=== PATIENT | male | born 1995 | race Caucasian/White ===

== ENCOUNTER 2020-01-18 08:58 | Day surgery (SDC) | payer BC ==
[2020-01-15 14:10] VITALS: BMI 26.9
[2020-01-18] MEDS ORDERED: MIDAZOLAM HCL 2 MG/2 ML SINGLE DOSE VIAL ONE (11:35)
[2020-01-18] MEDS ORDERED: ROPIVACAINE HCL 0.5% 30ML VIAL ONE (11:35)
[2020-01-18] MEDS ORDERED: PROPOFOL 20 ML ONE ×3 (12:42→12:45)
[2020-01-18] MEDS ORDERED: ceFAZolin SODIUM 1 GM VIAL ONE (12:45)
[2020-01-18] MEDS ORDERED: GLYCOPYRROLATE 0.2 MG/1 ML VIAL ONE (12:55)
[2020-01-18] MEDS ORDERED: oxyCODONE HCL 5 MG TABLET PO PRN ×2 (13:02)
[2020-01-18] MEDS ORDERED: ONDANSETRON 4 MG/2 ML VIAL IVPUSH PRN (13:02)
[2020-01-18] MEDS ORDERED: LACTATED RINGERS SOLUTION 1,000 ML IV SCH (13:15)
[2020-01-18 15:44] VITALS: TEMP 97.6
[2020-01-18 15:45] VITALS: BP 122/82; PULSE 56
--- NOTE | 2020-01-20 15:47 | OP ---
DATE OF OPERATION: 01/18/2020 SURGEON: Brant Quezada MD TRANSPORT MANAGER: APARNA Zavaleta PREOPERATIVE DIAGNOSIS: Left shoulder instability/labral tear. POSTOPERATIVE DIAGNOSIS: Left shoulder instability/labral tear. PROCEDURE: Left shoulder arthroscopy with capsulorrhaphy (CPT code 78612). FINDINGS: 1. Anterior labral tear 11:30 position to 6 o'clock position. 2. Grade 2 cartilage injury anterior rim of glenoid. 3. Thickened subacromial space. 4. Minor lateral spurring. 5. Posterior labral fraying. PROCEDURE: Informed consent was obtained. Patient was taken to the operating room where the left upper extremity was prepped and draped in a sterile fashion. Exam under anesthesia showed anterior inferior instability. Posterior incision was made which allowed for entry of the camera into the glenohumeral joint. Under direct visualization the anterior incision was made. Probing of the anterior labrum showed a Bankart tear with tearing of the anterior labrum as described, anterior cartilage injury and access of capsule tissue anteriorly. A secondary anterior portal was made. Small the anterior rim to create a bleeding surface on the entire anterior labral surface to the 6 o'clock position. Anchors were placed at the 6 o'clock, 5 o'clock, the 3 o'clock and 2 o'clock positions. Anterior capsular tissue and the anterior labrum were captured with alternating mattress and simple sutures, reducing the anterior capsule secured to a bleeding bone bed. Posterior labral fraying was debrided with a minor low setting Bovie. Rotator cuff was intact. The camera reached the subacromial space. Minor thickened scar tissue was debrided. Shoulder was drained. Single stitch was placed at all portals. Sterile dressing was placed. The patient was transferred to the recovery room without complication. BRANT QUEZADA M.D. [id number]
--- NOTE | 2020-01-23 19:01 | PATH ---
Surgical Pathology Report Patient Name: DINH HERNANDEZ Med. Rec. #: [id number] /Age/Gender: 1995 (Age: 24) / M Account: [id number] Location: [facility] [place] [facility] Taken: 01/18/2020 Received: 01/18/2020 Reported: 01/23/2020 Physicians: Babatunde Rooney M.D. Specimen(s) Received SHAVINGS LEFT SHOULDER Clinical History Instability of left shoulder Final Diagnosis SHOULDER SHAVINGS, LEFT, ARTHROSCOPY: FRAGMENTS OF DENSE FIBROCONNECTIVE TISSUE, ADIPOSE TISSUE, AND SKELETAL MUSCLE. Electronically Signed Jackie Auguste M.D. Gross Description Received in formalin, labeled "left shoulder shavings," is a 5.0 x 4.0 x 0.3 cm. aggregate of moreno-yellow soft tissue fragments. A customer care representative portion is submitted in one cassette. 01/21/2020 [facility]01/21/2020
== END 2020-01-18 15:30 | disposition home or self-care (01) ==
LOC: FASU 08:58
PROVIDERS: ATTEND Orthopaedic Surgery
PROC: 0RQK4ZZ Repair Left Shoulder Joint, Percutaneous Endoscopic Approach (ICD-10-PCS; principal; 2020-01-18 13:05)
DX: M24.112 Other articular cartilage disorders, left shoulder (principal); M25.312 Other instability, left shoulder
CPT/HCPCS: 88304-TC; 94760